=== PATIENT | female | born 1945 | race Two or more races ===

== ENCOUNTER 2023-02-02 08:08 | Emergency (ER) | payer OTHER ==
[~2023-02-02] VITALS: Ht 152.4 cm; Wt 56.2 kg
== END 2023-02-02 11:08 | disposition home or self-care (01) ==
LOC: ER 08:08
DX: J20.9 Acute bronchitis, unspecified (principal); J02.9 Acute pharyngitis, unspecified; I25.10 Atherosclerotic heart disease of native coronary artery without angina pectoris; Z95.0 Presence of cardiac pacemaker; E78.00 Pure hypercholesterolemia, unspecified; E03.9 Hypothyroidism, unspecified; I10 Essential (primary) hypertension